=== PATIENT | male | born 1960 | race Caucasian/White ===

== ENCOUNTER 2020-12-29 18:56 | Emergency (ER) | payer MEDICAID, SELFPAY ==
[~2020-12-29] VITALS: Ht 177.8 cm; Wt 58.2 kg
[2020-12-29] MEDS ORDERED: SODIUM CHLORIDE 0.9% 1,000ML IVBOLUS ONE (19:30)
[2020-12-29] MEDS ORDERED: ONDANSETRON 2MG/ML, 2ML IVPush ONE (19:30)
[2020-12-29] MEDS ORDERED: PLEASE ENTER ALLERGIES MC SCH (19:30)
[2020-12-29] MEDS ORDERED: HYDROmorphone 2 MG/ML, 1ML IVPush PRN (19:30)
[2020-12-29 19:43] LABS: MEAN CORPUSCULAR HEMOGLOBIN 29.2 pg (27.5-34.5); MEAN CORPUSCULAR HGB CONC 34.4 g/dL (33.2-36.2); MEAN PLATELET VOLUME 10.9 fL (7.4-10.4); PLATELET COUNT 292 x10^3/uL (130-400); RED BLOOD COUNT 6.27 x10^6/uL (4.38-5.82); RED CELL DISTRIBUTION WIDTH 14.6 % (9.4-14.8)
[2020-12-29 19:46] VITALS: BP 118/82
[2020-12-29 19:46] LABS: ALANINE AMINOTRANSFERASE 88 U/L (12-78); ALBUMIN 3.2 g/dL (3.4-5.0); ANION GAP 9 mmol/L (5-15); CALCIUM 10.6 mg/dL (8.5-10.1); CHLORIDE 97 mmol/L (98-107); CREATININE 1.26 mg/dL (0.7-1.3)
[2020-12-29 19:48] LABS: ALKALINE PHOSPHATASE 539 U/L (45-117); BILIRUBIN,TOTAL 2.2 mg/dL (0.2-1.0); TOTAL PROTEIN 7.8 g/dL (6.4-8.2)
[2020-12-29] MEDS ORDERED: HYDROmorphone 1 MG/ML, 1ML INJ ONE (20:11)
[2020-12-29] MEDS ORDERED: ONDANSETRON 2MG/ML, 2ML ONE (20:11)
--- NOTE | 2020-12-29 20:33 | NUR ---
Patient is resting comfortably in bed. Vital Signs within normal limits.
[2020-12-29 20:35] LABS: MD YES
[2020-12-29 20:50] LABS: MICROSCOPIC INDICATED
[2020-12-29 20:52] LABS: BAND#(MANUAL) 0.14 x10^3/uL; BANDS%(MANUAL) 1 % (0-7); BASOS#(MANUAL) 0.14 x10^3/uL (0-0.1); BASOS% (MANUAL) 1 % (0-1); EOS#(MANUAL) 0.27 x10^3/uL (0.0-0.4); EOS% (MANUAL) 2 % (1-7); LYMPH#(MANUAL) 2.45 x10^3/uL (1-3.4); LYMPHS% (MANUAL) 18 % (22-44); MONOS#(MANUAL) 1.09 x10^3/uL (0.3-2.7); MONOS% (MANUAL) 8 % (2-9); SEG#(MANUAL) 9.52 x10^3/uL (1.8-6.8); SEGS% (MANUAL) 70 % (42-75)
[2020-12-29 20:54] LABS: <PLATELET ESTIMATE> ADEQUATE; <RBC MORPHOLOGY> NORMAL; HYPOGRAN PLTS 1+; LARGE PLATELETS 1+
--- NOTE | 2020-12-29 21:06 | NUR ---
pt in bed with no signs or symptoms of acute distress noted respirations even and unlabored, noted to be watching television. call light within reach
== END 2020-12-29 21:33 | disposition home or self-care (01) ==
LOC: ED 21:00
DX: K85.00 Idiopathic acute pancreatitis without necrosis or infection (principal); F17.210 Nicotine dependence, cigarettes, uncomplicated
CPT/HCPCS: 36415; 80053; 81001; 83690; 85025; 96361; 96374; 96375; 99284; J1170; J2405; J7030

== ENCOUNTER 2020-12-30 22:55 | Emergency (ER) | payer MEDICAID ==
[~2020-12-30] VITALS: Ht 180.3 cm; Wt 78.0 kg
--- NOTE | 2020-12-30 23:13 | NUR ---
pt in bed, no signs or symptoms of acute distress noted respirations even and unlabored. pt states that he came to ed to get resources to get his medications, rides to his appointments, and contact with his providers. pt informed that these are not services that we are able to provide at this time in ed, pt encouraged to follow up with provided resources from [facility] instructions that pt had in hand yesterday, and to follow up with orders provided from this ed yesterday. pt continues to insist that he cannot participate with any of the mentioned resources and that he wants to be admitted for surgery immediately. pt informed that he cant be admited for emergent surgery without an emergent reason. pt requesting to speak to provider, this rn called pa into room. pt in bed with no signs or symptoms of acute distress noted respirations even and unlabored.
[2020-12-30] MEDS ORDERED: HYDROmorphone 1 MG/ML, 1ML INJ IV ONE (23:30)
[2020-12-30] MEDS ORDERED: ONDANSETRON ODT 4 MG PO ONE (23:30)
[2020-12-30] MEDS ORDERED: ONDANSETRON ODT 4 MG ONE (23:34)
[2020-12-30] MEDS ORDERED: HYDROmorphone 1 MG/ML, 1ML INJ ONE (23:34)
[2020-12-30 23:55] VITALS: BP 126/87
== END 2020-12-30 23:57 | disposition home or self-care (01) ==
LOC: ED 23:08
DX: K86.1 Other chronic pancreatitis (principal); Z76.0 Encounter for issue of repeat prescription; R10.84 Generalized abdominal pain; F17.210 Nicotine dependence, cigarettes, uncomplicated
CPT/HCPCS: 96372; 99283; J1170; Q0162

== ENCOUNTER 2021-01-01 16:45 | Emergency (ER) | payer MEDICAID ==
[~2021-01-01] VITALS: Ht 180.3 cm; Wt 55.3 kg
[2021-01-01] MEDS ORDERED: STIMULANT (17:00)
[2021-01-01] MEDS ORDERED: OXYCODONE (17:00)
[2021-01-01] MEDS ORDERED: FAMOTIDINE (17:00)
[2021-01-01] MEDS ORDERED: ZOFRAN (17:00)
[2021-01-01 18:00] LABS: ALANINE AMINOTRANSFERASE 47 U/L (12-78); ANION GAP 11 mmol/L (5-15); CALCIUM 10.6 mg/dL (8.5-10.1); CHLORIDE 91 mmol/L (98-107); CREATININE 1.21 mg/dL (0.7-1.3)
[2021-01-01 18:02] LABS: ALKALINE PHOSPHATASE 411 U/L (45-117); BILIRUBIN,TOTAL 1.9 mg/dL (0.2-1.0); TOTAL PROTEIN 7.3 g/dL (6.4-8.2)
[2021-01-01 18:04] VITALS: BP 101/76
[2021-01-01 18:06] LABS: BASOPHILS % (AUTO) 0 % (0-1); EOSINOPHILS % (AUTO) 1 % (1-7); LYMPHOCYTES % (AUTO) 9 % (22-44); MEAN CORPUSCULAR HEMOGLOBIN 29.1 pg (27.5-34.5); MEAN CORPUSCULAR HGB CONC 33.7 g/dL (33.2-36.2); MEAN PLATELET VOLUME 11.2 fL (7.4-10.4); MONOCYTES % (AUTO) 7 % (2-9); NEUTROPHILS % (AUTO) 83 % (42-75); PLATELET COUNT 257 x10^3/uL (130-400); RED BLOOD COUNT 6.22 x10^6/uL (4.38-5.82); RED CELL DISTRIBUTION WIDTH 13.8 % (9.4-14.8)
[2021-01-01 18:37] LABS: MD SCAN
--- NOTE | 2021-01-01 19:03 | NUR ---
REPORT GIVEN TO AME
--- NOTE | 2021-01-01 19:04 | NUR ---
Report received from MAKSIM Schwarz. This RN to assume care.
--- NOTE | 2021-01-01 19:26 | NUR ---
PT AWAKE AND ALERT, F/U AND D/C INSTRUCTIONS GIVEN TO PT AND HE V/U. CAB VOUCHER PROVIDED TO GET PT TO HOMEL[facility] CUSTODIAL.
== END 2021-01-01 19:57 | disposition home or self-care (01) ==
LOC: ED 19:40
DX: G89.29 Other chronic pain (principal); R10.84 Generalized abdominal pain; J44.9 Chronic obstructive pulmonary disease, unspecified
CPT/HCPCS: 36415; 80053; 83690; 85025; 99283; 99285

== ENCOUNTER 2021-01-03 08:50 | Inpatient (IN) | payer MEDICAID ==
[~2021-01-03] VITALS: Ht 180.3 cm; Wt 65.2 kg
[~2021-01-03 08:50] MED LIST: FAMOTIDINE; OXYCODONE; STIMULANT; ZOFRAN
[2021-01-03] MEDS ORDERED: LACTATED RINGERS 1,000 ML IVBOLUS ONE ×2 (09:00→10:30)
[2021-01-03] MEDS ORDERED: SODIUM CHLORIDE FLUSH 10ML SYR IVF ONE (09:00)
--- NOTE | 2021-01-03 09:13 | NUR ---
PIV PLACED, UNABLE TO DRAW LABS. MEDICINE AND HEALTH SERVICE MANAGER AT BEDSIDE FOR LAB DRAWN. XRAY COMPLETE.
[2021-01-03] MEDS ORDERED: MORPHINE SULFATE 4 MG/ML, 1ML ONE ×2 (09:16→11:03)
--- NOTE | 2021-01-03 09:27 | NUR ---
BIB [facility]. PT C/O PERIUMBILICAL PAIN. SEEN HERE TWO DAYS AGO FOR SAME. MEDICAL LABORATORY SCIENTIST [facility]: 4MG ZOFRAN PT CONNECTED TO MONITORING. CALL LIGHT IN REACH. WARM BLANKETS PROVIDED. MEDS ADMIN PER DEC, RUNNING.
[2021-01-03] MEDS ORDERED: ONDANSETRON 2MG/ML, 2ML IVPush ONE (09:30)
[2021-01-03] MEDS ORDERED: MORPHINE SULFATE 4 MG/ML, 1ML IVPush ONE ×2 (09:30→11:30)
--- NOTE | 2021-01-03 09:33 | NUR ---
PT RECEIVED 4MG ZOFRAN BY [facility]. ERP STATES NOT TO ADMIN ANOTHER DOSE AT THIS TIME.
[2021-01-03 09:45] LABS: ALANINE AMINOTRANSFERASE 46 U/L (12-78); ALBUMIN 3.3 g/dL (3.4-5.0); ANION GAP 16 mmol/L (5-15); CALCIUM 11.5 mg/dL (8.5-10.1); CHLORIDE 79 mmol/L (98-107); CREATININE 1.78 mg/dL (0.7-1.3)
[2021-01-03 09:48] LABS: ALKALINE PHOSPHATASE 488 U/L (45-117); BILIRUBIN,TOTAL 2.5 mg/dL (0.2-1.0); TOTAL PROTEIN 7.5 g/dL (6.4-8.2)
--- NOTE | 2021-01-03 09:59 | NUR ---
LAB TO BE REDRAWN D/T BLOOD CLOTTING.
--- NOTE | 2021-01-03 10:09 | NUR ---
LAB AT BEDSIDE FOR REDRAW.
[2021-01-03 10:23] LABS: BASOPHILS % (AUTO) 0 % (0-1); EOSINOPHILS % (AUTO) 1 % (1-7); LYMPHOCYTES % (AUTO) 8 % (22-44); MEAN CORPUSCULAR HEMOGLOBIN 28.7 pg (27.5-34.5); MEAN CORPUSCULAR HGB CONC 33.6 g/dL (33.2-36.2); MEAN PLATELET VOLUME 11.1 fL (7.4-10.4); MONOCYTES % (AUTO) 8 % (2-9); NEUTROPHILS % (AUTO) 84 % (42-75); PLATELET COUNT 233 x10^3/uL (130-400); RED BLOOD COUNT 5.93 x10^6/uL (4.38-5.82); RED CELL DISTRIBUTION WIDTH 14.2 % (9.4-14.8)
[2021-01-03] MEDS ORDERED: POTASSIUM CHLORIDE 40 MEQ in SODIUM CHLORIDE 0.9% 500 ML IV ONE ×2 (10:30→15:00)
[2021-01-03] MEDS ORDERED: POTASSIUM CHLORIDE 20 MEQ TAB.ER.PRT PO ONE (10:30)
--- NOTE | 2021-01-03 10:30 | NUR ---
PT PROVIDED WATER, OK PER ERP.
[2021-01-03] MEDS ORDERED: POTASSIUM CHLORIDE 20 MEQ TAB.ER.PRT ONE (10:34)
--- NOTE | 2021-01-03 10:38 | NUR ---
IVF RUNNING, MOLD CHANGER PER DEC. MED REQUESTED FROM PHARMACY.
--- NOTE | 2021-01-03 10:43 | NUR ---
MD AT BEDSIDE TO UPDATE PT ON POC. PT TO BE ADMIT.
--- NOTE | 2021-01-03 10:52 | NUR ---
PT STATES HE IS NOT TAKING ANY MEDS AT HOME.
[2021-01-03 10:55] LABS: MD SCAN
--- NOTE | 2021-01-03 11:21 | NUR ---
REPORT GIVEN TO SHAHNAZ SCHAEFFER. PT READY TO GO TO ROOM [id number]
[2021-01-03 11:36] VITALS: BP 126/73
[2021-01-03] MEDS ORDERED: MAGNESIUM SULFATE PMX 2GM/50ML 50 ML IV ONE (13:30)
[2021-01-03 14:00] VITALS: BP 114/79
[2021-01-03 14:12] LABS: POTASSIUM,URINE RANDOM 60 mmol/L; SODIUM,URINE RANDOM 20 mmol/L
[2021-01-03 14:13] LABS: CHLORIDE,URINE RANDOM < 10 mmol/L
[2021-01-03] MEDS: NS + 20MEQ KCL 1,000 ML IV SCH ×2 (14:30→23:36)
[2021-01-03] MEDS ORDERED: PHARMACY MAY ADJ FOR RENAL FX MC PRN (15:00)
[2021-01-03 15:03] LABS: MICROSCOPIC INDICATED
[2021-01-03] MEDS: HEPARIN 5,000 UNITS/ML, 1ML SQ SCH ×2 (15:12→22:37)
[2021-01-03] MEDS: MORPHINE SULFATE 4 MG/ML, 1ML IVPush PRN ×3 (15:57→22:38)
[2021-01-03] MEDS: MEROPENEM 500 MG in SODIUM CHLORIDE 0.9% 100 ML IV SCH (17:11)
[2021-01-03] MEDS: ONDANSETRON 2MG/ML, 2ML IVPush PRN (19:22)
[2021-01-03 19:35] VITALS: BP 125/84
[2021-01-03] MEDS: PROMETHAZINE 25 MG/ML, 1ML IM PRN (22:38)
[2021-01-04 00:25] VITALS: BP 108/72
[2021-01-04] MEDS: MEROPENEM 500 MG in SODIUM CHLORIDE 0.9% 100 ML IV SCH ×3 (01:37→17:22)
[2021-01-04] MEDS: MORPHINE SULFATE 4 MG/ML, 1ML IVPush PRN ×2 (01:38→04:44)
[2021-01-04] MEDS: PROMETHAZINE 25 MG/ML, 1ML IM PRN ×2 (02:48→23:33)
[2021-01-04] MEDS: METOCLOPRAMIDE 5 MG/ML, 2ML IVPush PRN ×3 (04:44→19:19)
[2021-01-04] MEDS: HEPARIN 5,000 UNITS/ML, 1ML SQ SCH ×3 (05:55→22:39)
[2021-01-04 06:39] LABS: BASOPHILS % (AUTO) 0 % (0-1); EOSINOPHILS % (AUTO) 1 % (1-7); LYMPHOCYTES % (AUTO) 6 % (22-44); MEAN CORPUSCULAR HEMOGLOBIN 28.9 pg (27.5-34.5); MEAN CORPUSCULAR HGB CONC 33.9 g/dL (33.2-36.2); MONOCYTES % (AUTO) 5 % (2-9); NEUTROPHILS % (AUTO) 88 % (42-75); RED BLOOD COUNT 5.91 x10^6/uL (4.38-5.82); RED CELL DISTRIBUTION WIDTH 14.2 % (9.4-14.8)
[2021-01-04 06:44] VITALS: BP 112/71
[2021-01-04 07:22] LABS: ALBUMIN 2.5 g/dL (3.4-5.0); ANION GAP 5 mmol/L (5-15); CALCIUM 10.1 mg/dL (8.5-10.1); CHLORIDE 94 mmol/L (98-107)
[2021-01-04 07:30] LABS: MD SCAN; PLATELET COUNT 236 x10^3/uL (130-400)
[2021-01-04 07:31] LABS: ALANINE AMINOTRANSFERASE 108 U/L (12-78); ALKALINE PHOSPHATASE 675 U/L (45-117); BILIRUBIN,TOTAL 5.1 mg/dL (0.2-1.0); CHOL/HDL RATIO 5.1; CHOLESTEROL, TOTAL 133 mg/dL (140-239); CREATININE 1.19 mg/dL (0.7-1.3); HDL CHOL % 20 % (26-37); HDL CHOLESTEROL (DIRECT) 26 mg/dL (40-60); LDL CHOLESTEROL,CALCULATED 86 mg/dL (54-169); LDL/HDL RATIO 3.3 (0.5-3.0); TOTAL PROTEIN 5.9 g/dL (6.4-8.2); TRIGLYCERIDES 104 mg/dL (50-200); VLDL CHOLESTEROL 21 mg/dL (0-25)
[2021-01-04] MEDS: HYDROmorphone 2 MG/ML, 1ML IVPush PRN ×4 (08:05→23:33)
[2021-01-04] MEDS: PANTOPRAZOLE 40 MG IV IVPush SCH (08:46)
[2021-01-04] MEDS: NS + 20MEQ KCL 1,000 ML IV SCH ×2 (11:07→22:35)
[2021-01-04 13:02] VITALS: BP 103/73
[2021-01-04 19:27] VITALS: BP 116/80
[2021-01-05] MEDS: MEROPENEM 500 MG in SODIUM CHLORIDE 0.9% 100 ML IV SCH ×2 (01:23→08:41)
[2021-01-05 02:26] VITALS: BP 105/58
[2021-01-05] MEDS: HYDROmorphone 2 MG/ML, 1ML IVPush PRN ×2 (03:28→07:39)
[2021-01-05 05:37] LABS: BASOPHILS % (AUTO) 0 % (0-1); EOSINOPHILS % (AUTO) 1 % (1-7); LYMPHOCYTES % (AUTO) 6 % (22-44); MEAN CORPUSCULAR HEMOGLOBIN 29.3 pg (27.5-34.5); MEAN CORPUSCULAR HGB CONC 34.3 g/dL (33.2-36.2); MEAN PLATELET VOLUME 11.7 fL (7.4-10.4); MONOCYTES % (AUTO) 8 % (2-9); NEUTROPHILS % (AUTO) 85 % (42-75); PLATELET COUNT 177 x10^3/uL (130-400); RED BLOOD COUNT 5.48 x10^6/uL (4.38-5.82); RED CELL DISTRIBUTION WIDTH 14.6 % (9.4-14.8)
[2021-01-05 05:42] LABS: ALBUMIN 2.4 g/dL (3.4-5.0); ANION GAP 8 mmol/L (5-15); CALCIUM 9.9 mg/dL (8.5-10.1); CHLORIDE 96 mmol/L (98-107)
[2021-01-05 05:46] LABS: ALANINE AMINOTRANSFERASE 159 U/L (12-78); ALKALINE PHOSPHATASE 775 U/L (45-117); BILIRUBIN,TOTAL 6.1 mg/dL (0.2-1.0); CREATININE 1.01 mg/dL (0.7-1.3); TOTAL PROTEIN 5.7 g/dL (6.4-8.2)
[2021-01-05 06:10] LABS: MD SCAN
[2021-01-05] MEDS: NS + 20MEQ KCL 1,000 ML IV SCH (06:30)
[2021-01-05] MEDS: PANTOPRAZOLE 40 MG IV IVPush SCH (06:38)
[2021-01-05] MEDS: HEPARIN 5,000 UNITS/ML, 1ML SQ SCH (06:38)
[2021-01-05 07:21] VITALS: BP 117/72
[2021-01-05] MEDS: ONDANSETRON 2MG/ML, 2ML IVPush PRN (10:02)
[2021-01-05] MEDS ORDERED: SCOPOLAMINE 1MG PATCH TD PRN (11:00)
[2021-01-05] MEDS ORDERED: LORazepam 2 MG/ML, 1ML IVPush PRN (11:00)
[2021-01-05] MEDS ORDERED: ATROPINE OPHTH SOLN 1%, 5ML PO PRN (11:00)
[2021-01-05] MEDS ORDERED: HYDROmorphone PCA 30 MG/30 ML IV PRN (11:00)
[2021-01-05] MEDS ORDERED: ONDANSETRON 2MG/ML, 2ML IVPush PRN (11:00)
== END 2021-01-05 11:04 | disposition hospice, home (50) | DRG 281 ==
LOC: ED 09:36 → EDIP 10:55 → SUATTDRO 11:00 → 4NW 11:34
PROVIDERS: ADMIT Internal Medicine; ATTEND Family Medicine
DX: C25.9 Malignant neoplasm of pancreas, unspecified (principal); E43 Unspecified severe protein-calorie malnutrition; K85.90 Acute pancreatitis without necrosis or infection, unspecified; E83.52 Hypercalcemia; E87.1 Hypo-osmolality and hyponatremia; E87.6 Hypokalemia; J44.9 Chronic obstructive pulmonary disease, unspecified; K59.00 Constipation, unspecified; K86.1 Other chronic pancreatitis; N17.0 Acute kidney failure with tubular necrosis; R18.8 Other ascites; Z51.5 Encounter for palliative care; Z63.8 Other specified problems related to primary support group; Z85.07 Personal history of malignant neoplasm of pancreas; Z68.20 Body mass index [BMI] 20.0-20.9, adult; Z79.899 Other long term (current) drug therapy
CPT/HCPCS: 36415; 71045; 74176; 80053; 80061; 81001; 82150; 82436; 83690; 83735; 83930; 83935; 84100; 84133; 84300; 84443; 85025; 86301; 87040; 87077; 87186; 93005; 96361; 96374; 99285; G0378; J1170; J1644; J2185; J2405; J2550; J3480; C9113; J2270; J2765; J3475; J7040; J7120